=== PATIENT | male | born 1940 | race Caucasian/White ===

== ENCOUNTER 2018-04-02 18:46 | Emergency (ER) ==
[2018-04-02 18:54] VITALS: BP 127/78; TEMP 99.1; BMI 26.9
[2018-04-02] MEDS ORDERED: LIDOCAINE HCL 1% SDV SUBCUT STA (19:17)
--- NOTE | 2018-04-02 20:16 | ED.PDOC ---
General ED Provider: Dr. DEVANTE WERNER Chief Complaint: Fall Stated Complaint: I fell at home now have a skin laceration on the left hand. Denies any other pain. Time Seen by Physician: 19:30 Mode of Arrival: Walk-In Information Source: Patient, Family Primary Care Provider: JOE MARROQUIN Nursing and Triage Documentation Reviewed and Agree: Yes Does patient meet sepsis criteria?: No System Inflammatory Response Syndrome: Not Applicable Sepsis Protocol: For patient's 13 years and over: Temp is 96.8 and below OR 101 and greater Pulse >90 BPM Resp >20/minute Acutely Altered Mental Status Are patient's symptoms suggestive of a new infection, such as: -Pneumonia -Skin, Soft Tissue -Endocarditis -UTI -Bone, Joint Infection -Implantable Device -Acute Abdominal Infection -Wound Infection -Meningitis -Blood Stream Catheter Infection -Unknown Review of Systems - Review Of Systems Constitutional: Reports: No symptoms Skin: Reports: Other (laceration left hand ) All Other Systems: Reviewed and Negative Past Medical History - Past Medical History Endocrine: Reports: None Cardiovascular: Reports: None Respiratory: Reports: None Hematological: Reports: None Gastrointestinal: Reports: None Genitourinary: Reports: None Neuro/Psych: Reports: TIA Musculoskeletal: Reports: None Cancer: Reports: None Other Pertinent Past Medical History: Cerumen impaction - Surgical History General Surgical History: Reports: Orthopedic (Knee replacement ) - Family History Family History: Reports: None - Social History Smoking Status: Never smoker Hx Substance Use: No Alcohol Screening: None - Immunizations Tetanus Shot up to Date: Yes Influenza Vaccine within 12 Months: No Pneumococcal Vaccine up to Date: No Physical Exam - Physical Exam Appearance: Well-appearing Pain Distress: Mild Eyes: Conjunctiva clear Respiratory: Airway patent Musculoskeletal: Normal strength, ROM intact Skin: Warm, Dry Neurological: Alert, Oriented Psychiatric: Anxious Critical Care Note - Critical Care Note Total Time (mins): 0 Course - Course Orders, Labs, Meds: Orders Category Date Time Status Wound care [ED WOUND CARE] .ONCE EMERGENCY 04/02/18 19:17 Active Lidocaine HCl/Pf [Lidocaine HCl 1% Sdv] MEDS 04/02/18 19:17 Discontinued 5 ml SUBCUT ONCE STA Medications Discontinued Medications Generic Name Dose Route Start Last Admin Trade Name Freq PRN Reason Stop Dose Admin Lidocaine HCl 5 ml 04/02/18 19:17 04/02/18 19:46 Lidocaine Hcl 1% Sdv SUBCUT 04/02/18 19:18 5 ml ONCE STA Administration Vital Signs: Temp Pulse Resp BP Pulse Ox 04/02/18 18:48 99.1 F 81 20 127/78 94 L Departure - Departure Time of Disposition: 20:17 Disposition: HOME SELF-CARE Discharge Problem: Laceration of hand Qualifiers: Encounter type: initial encounter Foreign body presence: without foreign body Laterality: left Qualified Code(s): S61.412A - Laceration without foreign body of left hand, initial encounter Finger laceration Qualifiers: Encounter type: sequela Finger: middle finger Damage to nail status: without damage Foreign body presence: without foreign body Laterality: left Qualified Code(s): S61.213S - Laceration without foreign body of left middle finger without damage to nail, sequela Instructions: Finger Laceration (ED), Laceration (ED) Condition: Fair Pt referred to PMD for follow-up: Yes IPMP verified?: No Additional Instructions: Follow up with PCP in 7-10 days to have sutures removed Allergies/Adverse Reactions: Allergies No Known Allergies Allergy (Unverified 07/22/15 10:23) Home Medications: Ambulatory Orders Benzonatate [Tessalon Perles] 100 mg PO TID PRN #15 capsule 07/22/15 Fluticasone Propionate [Flonase Allergy Relief] 9.9 ml NS DAILY #1 spray.susp Disposition Discussed With: Patient, Family
== END 2018-04-02 20:30 | disposition home or self-care (01) ==
LOC: ED 18:46
DX: S61.412A Laceration without foreign body of left hand, initial encounter (principal); S61.213A Laceration without foreign body of left middle finger without damage to nail, initial encounter
CPT/HCPCS: 99283

== ENCOUNTER 2024-10-01 10:34 | Inpatient (IN) ==
--- NOTE | 2024-10-01 10:46 | ED.PDOC ---
General ED Provider: Dr. MARCELINO STOUT MD Chief Complaint: Weakness Stated Complaint: This 84 y/o male comes in with weakness and decubitis ulcers on his buttocks that have been bothering him for a couple of weeks. he is supposed to get a new bed, but does not have it yet. Time Seen by Provider: 10/01/24 10:38 Mode of Arrival: Walk-In Information Source: Patient Exam Limitations: No limitations Primary Care Provider: MARGARITA ABAD Nursing and Triage Documentation Reviewed and Agree: Yes Does Patient Take Opioids?: No Is Patient Opioid Naive?: No What is Opioid Naive?: *Opioid Naive implies the patient is not already taking opioids or not chronically receiving opioids on a daily basis. *PRN dosing is not "usually" associated with tolerance. *Patients are at higher risk of over-sedation and aspiration. Is Patient Opioid Tolerant?: No What is Opioid Tolerant?: *Opioid Tolerance implies less than the expected response to an opioid. *Acquired tolerance is defined by the patient taking 60mg of oral morphine daily (or equianalgesic dose of another opioid) for 1 week or more. *Often associated with chronic pain. *May take more than usual dose to achieve desired pain control. Review of Systems Review Of Systems Constitutional: Reports No symptoms Eyes: Reports No symptoms Ears, Nose, Mouth, Throat: Reports No symptoms Respiratory: Reports No symptoms Cardiac: Reports No symptoms GI: Reports No symptoms : Reports No symptoms Musculoskeletal: Reports No symptoms Skin: Reports Other (decubitus ulcers, stage 1, starting on buttocks) Neurological: Reports Weakness Endocrine: Reports No symptoms Hematologic/Lymphatic: Reports No symptoms All Other Systems: Reviewed and Negative [facility] Social History Smoking and tobacco status: Never smoker Physical Exam Physical Exam Appearance: Reports Well-appearing Ill-appearing: None Pain Distress: None Eyes: Reports LARRY, EOMI, Conjunctiva clear and Conjunctiva inflammed ENT: Reports Ears normal, Nose normal and Oropharynx normal Neck: Supple Respiratory: Reports Airway patent, Breath sounds clear, Breath sounds equal and Breath sounds diminished Cardiovascular: Reports RRR and Pulses normal GI/: Reports Soft, Nontender, No masses, Bowel sounds normal and No Organomegaly Musculoskeletal: Reports Normal strength and ROM intact Skin: Reports Warm, Dry and Other (2 stage 1 decubs starting on both sides of buttocks, but no sacral decub. No bleeding as of now, but patient says that they have before. Skin still intact mostly.) Neurological: Reports Sensation intact, Motor intact, Reflexes intact, Cranial nerves intact, Alert and Oriented Psychiatric: Reports Affect appropriate Course Course 10/01/24 10:58 10/01/24 10:58 Orders, Labs, Meds: Lab Review 10/01/24 10/01/24 10:53 10:58 WBC 6.14 RBC 4.00 L Hgb 12.9 L Hct 40.4 L MCV 101.0 H MCH 32.3 H MCHC 31.9 RDW Coeff of Jl 12.4 Plt Count 117 L Immature Gran % (Auto) 0.3 Neut % (Auto) 68.4 Lymph % (Auto) 14.2 [place] % (Auto) 6.7 Eos % (Auto) 9.9 H Baso % (Auto) 0.5 Neut # (Auto) 4.2 Lymph # (Auto) 0.9 [place] # (Auto) 0.4 Eos # (Auto) 0.6 Baso # (Auto) 0.0 Immature Gran # (Auto) 0.0 Sodium 139.2 Potassium 2.98 L Chloride 101.9 Carbon Dioxide 24.7 Anion Gap 15.58 BUN 13.9 Creatinine 1.41 H Estimated GFR (MDRD) 48.00 BUN/Creatinine Ratio 9.85 Glucose 94.3 Calcium 8.81 Magnesium 1.29 L Total Bilirubin 0.79 AST 30.3 ALT 17.5 Alkaline Phosphatase 74.9 Troponin I 0.067 Total Protein 6.33 Albumin 3.39 L Globulin 2.94 Albumin/Globulin Ratio 1.15 TSH 2.050 Free T4 1.92 SARS CoV-2 RNA Rapid TRACY Negative Orders Category Date Time Status ADMIT PATIENT INPATIENT .TO MEDSURG (MONITORED BED) ADMISSION 10/01/24 12:55 Active EKG-(ED ONLY) Stat CARDIO 10/01/24 10:46 Completed TELEMETRY MONITORING TELE CARE 10/01/24 12:55 Active Wound care [ED WOUND CARE] .ONCE EMERGENCY 10/01/24 10:47 Active CBC W/ AUTO DIFF Stat LAB 10/01/24 10:58 Completed CMP [COMPREHENSIVE METABOLIC PANEL] Stat LAB 10/01/24 10:58 Completed FREE T4 (FREE THYROXINE) Stat LAB 10/01/24 10:58 Completed MAGNESIUM Stat LAB 10/01/24 10:58 Completed PROBNP ED [NT-PROBNP(ED)] Stat LAB 10/01/24 10:58 Received SARS COV-2 RNA RAPID TRACY Stat LAB 10/01/24 10:53 Completed TROPONIN I Stat LAB 10/01/24 10:58 Completed TSH [THYROID STIMULATING HORMONE] Stat LAB 10/01/24 10:58 Completed Magnesium Sulfate Bag [Magnesium Sulfate 1 gm/100 ml Meds 10/01/24 13:00 Active D5w] 1 gm in 100 ml IV ONCE Potassium Chloride [K-Dur] Meds 10/01/24 12:27 Discontinued 40 meq PO ONCE ONE Sodium Chloride 0.9% [Sodium Chloride] 500 ml Meds 10/01/24 12:28 Active IV 100 mls/hr KUB [ABDOMEN 1 VIEW] Stat RADS 10/01/24 11:25 Completed Medications Generic Name Dose Route Start Last Admin Trade Name Freq PRN Reason Stop Dose Admin Sodium Chloride 500 mls @ 100 mls/hr 10/01/24 12:28 10/01/24 12:44 Sodium Chloride IV 10/01/24 17:27 100 mls/hr .Q5H ONE Administration Magnesium Sulfate/Dextrose 1 gm in 100 mls @ 100 mls/hr 10/01/24 13:00 10/01/24 12:44 Magnesium Sulfate 1 Gm/100 Ml D5w IV 10/01/24 13:59 100 mls/hr ONCE ONE Administration Discontinued Medications Generic Name Dose Route Start Last Admin Trade Name Freq PRN Reason Stop Dose Admin Potassium Chloride 40 meq 10/01/24 12:27 10/01/24 12:44 Potassium Chloride 20 Meq Tab PO 10/01/24 12:28 40 meq ONCE ONE Administration Vital Signs: Temp Pulse Resp BP Pulse Ox 10/01/24 10:38 98.2 F 81 18 151/77 H 96 Discharge Plan Discharge Patient Disposition: ADMITTED INPATIENT Discharge Problem: Weakness, Acute hypokalemia, Hypomagnesemia, Decubitus skin ulcer Did you review [place] [employer] DIRECTOR for ALL controlled substances?: Not Applicable ED Provider: MARCEILNO STOUT Condition: Good Physician Progress Note: We will get CBC, CMP, EKG, Mag, and will likely admit the patient for care, as he is weak, can not take care of himself well, we will likely admit this nice gentleman for care, as he would benefit greatly from this. Patient has HYPOKALEMIA and HYPOMAGNESEMIA with K+ = 2.9 and Mag = 1.29. All other serum electrolytes are WNL, and CBC shows all values adequate. COVID is negative EKG - Tracing shows NSR with rate = 68 BPM. TN interval is slightly prolonged = 204 MS and QRS duration = 86 MS. Rhythm is NSR with no acute ST segment abberations. This EKG read and interpreted by me: Dr. Marcelino Stout MD. I spoke to Cm Mcfadden who is on for hospitalist. She will accept the patient, and I have started K-Dur 40 mEq po, and am giving Mag Sulfate 1 gram in IV form, with NS at 100 cc/hr. We will admit for Weakness, Hypokalemia, Hypomagnesemia, and decubitus care.
[2024-10-01 11:05] LABS: BASOPHILS % (AUTO) 0.5 % (0.0-3.0); EOSINOPHILS # (AUTO) 0.6 K/ul (0.0-0.7); EOSINOPHILS % (AUTO) 9.9 % (0.0-7.0); HEMATOCRIT 40.4 % (42.0-52.0); HEMOGLOBIN 12.9 g/dl (14.0-18.0); IMMATURE GRANULOCYTE % (AUTO) 0.3 % (0.0-5.0); LYMPHOCYTES # (AUTO) 0.9 K/uL (0.60-3.4); LYMPHOCYTES % (AUTO) 14.2 (10.0-50.0); MEAN CORPUSCULAR HEMOGLOBIN 32.3 pg (27.0-31.0); MEAN CORPUSCULAR HGB CONC 31.9 (31.8-35.4); MONOCYTES # (AUTO) 0.4 K/uL (0.4-2.0); MONOCYTES % (AUTO) 6.7 (0-10); NEUTROPHILS # (AUTO) 4.2 K/ul (2.0-6.9); NEUTROPHILS % (AUTO) 68.4 % (42.2-75.2); PLATELET COUNT 117 10^3/uL (140-440); RDW COEFFICIENT OF VARIATION 12.4 % (11.6-14.8); WHITE BLOOD COUNT 6.14 K/ul (4.2-10.2)
[2024-10-01 11:16] LABS: ALANINE AMINOTRANSFERASE 17.5 U/L (0-50); ALBUMIN 3.39 g/dL (3.5-5.0); ALKALINE PHOSPHATASE 74.9 U/L (56-119); ASPARTATE AMINO TRANSFERASE 30.3 U/L (17-59); BILIRUBIN,TOTAL 0.79 mg/dL (0.2-1.3); BLOOD UREA NITROGEN 13.9 mg/dL (9-20); CALCIUM 8.81 mg/dL (8.4-10.2); CARBON DIOXIDE 24.7 mmol/L (22-30.0); CHLORIDE 101.9 mmol/L (98-107); CREATININE 1.41 mg/dL (0.60-1.10); GLUCOSE 94.3 mg/dL (74-106); MAGNESIUM 1.29 mg/dL (1.6-2.3); POTASSIUM 2.98 mmol/L (3.5-5.1); SODIUM 139.2 mmol/L (134.5-145); TOTAL PROTEIN 6.33 g/dL (6.3-8.2)
[2024-10-01 11:27] LABS: TROPONIN I 0.067 ng/ml (0.0000-0.120)
[2024-10-01 11:27] LABS: SARS COV-2 RNA RAPID NAAT NEGATIVE (NEGATIVE)
--- NOTE | 2024-10-01 11:44 | DI ---
EXAM: AP VIEW OF ABDOMEN 10/01/2024 HISTORY: Constipation. COMPARISON: CT abdomen pelvis 07/27/2024 FINDINGS: Regional soft tissue and osseous structures are intact. Bowel gas pattern is non-obstructive. No fr ee intraperitoneal air. Moderate fecal burden. Degenerative changes. Scoliosis. Phleboliths in the pelvis. IMPRESSION: Nonobstructive bowel gas pattern. Moderate fecal burden.
[2024-10-01] MEDS ORDERED: MAGNESIUM SULFATE 1 GM/2 ML VIAL IVP ONE (12:28)
[2024-10-01] MEDS: K-DUR PO ONE (12:44)
[2024-10-01] MEDS: MAGNESIUM SULFATE 1 GM/100 ML D5W 1 GM/100 ML BAG IV ONE (12:44)
[2024-10-01] MEDS: SODIUM CHLORIDE 500 ML IV ONE (12:44)
[2024-10-01 14:23] VITALS: BMI 23.1
[2024-10-01] MEDS ORDERED: TYLENOL PO PRN (14:25)
--- NOTE | 2024-10-01 14:42 | PCM ---
Date of Service Date Seen by Provider: 10/01/24 Time Seen by Provider: 14:15 Admit Day/Time Admission Date: 10/01/24 Reason for Admission Chief Complaint: WEAKNESS Hospital Provider Hospital Provider: RD MOLINA, [facility]ist [facility] Primary Care Physician Primary Care Physician: MARGARITA ABAD History of Present Illness History of Present Illness: 84 yo male with pmh of HTN, HLD, Diastolic dysfunction, and Afib presented to the ER via ambulance from home for weakness. States that he has not been out of his recliner for 2 weeks due to weakness. Has been using a urinal to urinate and has foul smell due to inability to shower. Currently living at home by himself. No family that lives local. Does have a friend that looks out for him. Found to have potassium of 2.9 and Mag of 1.3. Admitted to med/surg observation. Re quiring 3 person assist to transfer at this time. Case Discussed With Case Discussed With: Patient's case was discussed with the ER Physicians, Dr. Stout [facility] Medical History (Updated 10/01/24 @ 14:[address]OLINA) Implantable loop recorder present Z95.818 - Presence of other cardiac implants and grafts (ICD-10) TIA (transient ischemic attack) G45.9 - Transient cerebral ischemic attack, unspecified (ICD-10) HLD (hyperlipidemia) E78.5 - Hyperlipidemia, unspecified (ICD-10) HTN (hypertension) I10 - Essential (primary) hypertension (ICD-10) CAD (coronary artery disease) I25.10 - Atherosclerotic heart disease of [place] coronary artery without angina pectoris (ICD-10) Grade I diastolic dysfunction I51.89 - Other ill-defined heart diseases (ICD-10) Aortic root enlargement I77.89 - Other specified disorders of arteries and arterioles (ICD-10) Paroxysmal SVT (supraventricular tachycardia) I47.10 - Supraventricular tachycardia, unspecified (ICD-10) Hiatal hernia K44.9 - Diaphragmatic hernia without obstruction or gangrene (ICD-10) Paroxysmal atrial fibrillation I48.0 - Paroxysmal atrial fibrillation (ICD-10) Chronic kidney disease, stage 3b N18.32 - Chronic kidney disease, stage 3b (ICD-10) BPH (benign prostatic hyperplasia) N40.0 - Benign prostatic hyperplasia without lower urinary tract symptoms (ICD-10) Barretts esophagus K22.70 - Ram's esophagus without dysplasia (ICD-10) Social History Smoking and tobacco status: Never smoker Allergies Allergies Allergy/AdvReac Type Severity Reaction Status Date / Time No Known Allergies Allergy Verified 10/01/24 10:55 Current Medications Home Medications Acetaminophen (Acetaminophen 325 Mg Tablet) 650 mg PO Q4H PRN PRN Reason: Mild Pain fluticasone propionate 50 mcg/actuation nasal spray,suspension (Flonase Allergy Relief) 9.9 ml NS DAILY ##1 07/22/15 [Rx Confirmed 10/01/24] donepezil 5 mg tablet 5 mg PO DAILY 01/21/21 [History Confirmed 10/01/24] dorzolamide 22.3 mg-timolol 6.8 mg/mL eye drops 1 drp BOTHEYES BEDTIME 01/21/21 [History Confirmed 10/01/24] ergocalciferol (vitamin D2) 1,250 mcg (50,000 unit) capsule (Vitamin D2) 1 unit PO DIRECTED 01/21/21 [History Confirmed 10/01/24] folic acid 1 mg tablet 1 mg PO DAILY 01/21/21 [History Confirmed 10/01/24] pantoprazole 40 mg tablet,delayed release 40 mg PO DAILY 01/21/21 [History Confirmed 10/01/24] tamsulosin 0.4 mg capsule 0.4 mg PO DAILY 01/21/21 [History Confirmed 10/01/24] apixaban 2.5 mg tablet (Eliquis) 2.5 mg PO BID 10/01/24 [History Confirmed 10/01/24] atorvastatin 10 mg tablet 10 mg PO DAILY 10/01/24 [History Confirmed 10/01/24] bimatoprost 0.01 % eye drops (Lumigan) 1 drp BOTHEYES BEDTIME 10/01/24 [History Confirmed 10/01/24] brimonidine 0.2 % eye drops 1 drp BOTHEYES TID 10/01/24 [History Confirmed 10/01/24] carvedilol 3.125 mg tablet 3.125 mg PO BID 10/01/24 [History Confirmed 10/01/24] erythromycin 5 mg/gram (0.5 %) eye ointment 1 applic BOTHEYES BEDTIME 10/01/24 [History Confirmed 10/01/24] fexofenadine 180 mg tablet (Kareen Allergy) 180 mg PO DAILY 10/01/24 [History Confirmed 10/01/24] terazosin 5 mg capsule 5 mg PO BEDTIME 10/01/24 [History Confirmed 10/01/24] Opioid Naive vs. Tolerant Does Patient Take Opioids?: No Is Patient Opioid Naive?: Yes What is Opioid Naive?: *Opioid Naive implies the patient is not already taking opioids or not chronically receiving opioids on a daily basis. *PRN dosing is not "usually" associated with tolerance. *Patients are at higher risk of over-sedation and aspiration. Is Patient Opioid Tolerant?: No What is Opioid Tolerant?: *Opioid Tolerance implies less than the expected response to an opioid. *Acquired tolerance is defined by the patient taking 60mg of oral morphine daily (or equianalgesic dose of another opioid) for 1 week or more. *Often associated with chronic pain. *May take more than usual dose to achieve desired pain control. Review of Systems Constitutional: Reports Weakness Head: Reports Normocephalic Eyes: Reports No symptoms Ears: Reports No symptoms Nose: Reports No symptoms Mouth: Reports No symptoms Throat: Reports No symptoms Cardiovascular: Reports No symptoms Respiratory: Reports No symptoms Gastrointestinal: Reports No symptoms Genitourinary: Reports No Symptoms Musculoskeletal: Reports No symptoms Endocrine: Reports No symptoms Hematology: Reports No symptoms Immunology: Reports No symptoms Neurological: Reports No symptoms Psychiatric: Reports No symptoms Physical examination Most Recent Vital Signs: Most Recent Vital Signs Temperature 97.8 F 10/01/24 13:35 Temperature Source Temporal Artery Scan 10/01/24 13:35 Temperature Source Temporal Artery Scan 10/01/24 10:38 Pulse Rate 64 10/01/24 13:35 Respiratory Rate 18 10/01/24 13:35 Blood Pressure 151/77 H 10/01/24 10:38 Blood Pressure Left Arm 123/95 10/01/24 13:35 Blood Pressure Position Sitting 10/01/24 13:35 O2 Sat by Pulse Oximetry 97 10/01/24 13:35 Oxygen Delivery Method Room Air 10/01/24 14:00 Height 6 ft 4 in 10/01/24 13:35 Weight 86 kg 10/01/24 13:35 Appearance: Positive No Apparent Distress and Alert and Oriented x3 Skin: Positive Warm and Other (shearing to buttocks, blanchable; redness to backs of legs due to blood pooling) HEENT: Positive Normocephalic and PERRLA Neck: Positive Supple Chest/Lungs: Positive Symmetrical With Equal Breath Sounds, Clear to Auscultation Bilaterally and Good Air Movement all 4 Lung Lopez Heart: Positive RRR, Pulses Normal and Murmur GI/: Positive Soft, Nontender, Bowel Sounds Normal and No Distention Musculoskeletal: Positive Other (unsteady, weak) Extremities: Positive Intact Peripheral Pulses, Stable Joints Without Laxity and Good ROM in All Joints Neurological: Positive Sensation Intact, Motor intact, Alert, Oriented and Other (generalized weakness) Labs This Visit Labs This Visit: Labs This Visit 10/01/24 10/01/24 10:53 10:58 WBC 6.14 RBC 4.00 L Hgb 12.9 L Hct 40.4 L MCV 101.0 H MCH 32.3 H MCHC 31.9 RDW Coeff of Jl 12.4 Plt Count 117 L Immature Gran % (Auto) 0.3 Neut % (Auto) 68.4 Lymph % (Auto) 14.2 [place] % (Auto) 6.7 Eos % (Auto) 9.9 H Baso % (Auto) 0.5 Neut # (Auto) 4.2 Lymph # (Auto) 0.9 [place] # (Auto) 0.4 Eos # (Auto) 0.6 Baso # (Auto) 0.0 Immature Gran # (Auto) 0.0 Sodium 139.2 Potassium 2.98 L Chloride 101.9 Carbon Dioxide 24.7 Anion Gap 15.58 BUN 13.9 Creatinine 1.41 H Estimated GFR (MDRD) 48.00 BUN/Creatinine Ratio 9.85 Glucose 94.3 Calcium 8.81 Magnesium 1.29 L Total Bilirubin 0.79 AST 30.3 ALT 17.5 Alkaline Phosphatase 74.9 Troponin I 0.067 NT-Pro-B Natriuret Pep 1920 H Total Protein 6.33 Albumin 3.39 L Globulin 2.94 Albumin/Globulin Ratio 1.15 TSH 2.050 Free T4 1.92 SARS CoV-2 RNA Rapid TRACY Negative Review Statement Review Statement: I have independently reviewed and interpreted the labs/EKGs/imaging that were ordered by the ER provider. I have reviewed all outside records that are available currently in our EMR including imaging/notes/labs from previous visits. Plan Plan: 1. Hypokalemia - replacement ordered, telemetry, repeat in am 2. Hypomagnesemia - replacement ordereed, telemetry, repeat in am 3. Weakness/Debility - PT/OT consult, unsafe to discharge home at this time 4. Diastolic dysfunction - chronic, no s/sx of overload, monitor 5. HTN - chronic, continue home medications DVT Prophylaxis: Eliquis Time Spent: Greater than 80 minutes spent with patient, 50% of the time spent with this patient was devoted to counseling and coordination of care. [facility] minutes spent discussing advance care planning. Disposition: Admit to: Med/Surg Observation DNR Discussed Plan of Care with Dr. Shantel Briseno. Medications Medication Orders: Medications Ordered Category Date Time Status Acetaminophen [Tylenol] Meds 10/01/24 14:25 Ordered 650 mg PO Q4H PRN
[2024-10-01 14:51] LABS: BILIRUBIN,URINE 1+ (NEGATIVE); CLARITY,URINE Clear (CLEAR); COLOR,URINE Yellow (YELLOW); GLUCOSE, URINE (UA) Negative (NEGATIVE); KETONES,URINE 2+ (NEGATIVE); LEUKOCYTE ESTERASE ,URINE Negative (NEGATIVE); NITRITE,URINE Negative (NEGATIVE); PROTEIN,URINE 2+ (NEGATIVE); URINE, BLOOD Negative (NEGATIVE)
[2024-10-01 14:54] LABS: MUCUS,URINE 1+ (NOT PRESENT); URINE RBC, MICROSCOPIC 0-2 (0-2)
[2024-10-01] MEDS: COREG PO SCH (17:06)
[2024-10-01] MEDS: PROTONIX PO SCH (17:06)
[2024-10-01] MEDS: COSOPT RIGHTEYE SCH (20:29)
[2024-10-01] MEDS: FOLIC ACID PO SCH (20:29)
[2024-10-01] MEDS: LIPITOR PO SCH (20:29)
[2024-10-01] MEDS: ERYTHROMYCIN EACHEYE SCH (20:29)
[2024-10-01] MEDS: LUMIGAN 0.03% EACHEYE SCH (20:29)
[2024-10-01] MEDS: BRIMONIDINE TARTRATE 0.2% OPTH SOL RIGHTEYE SCH (20:29)
[2024-10-01] MEDS: ELIQUIS PO SCH (20:30)
[2024-10-01] MEDS: FLOMAX PO PRN (20:30)
[2024-10-01] MEDS: DRISDOL PO SCH (20:35)
[2024-10-01] MEDS ORDERED: HYTRIN PO SCH (21:00)
[2024-10-02 05:52] LABS: BASOPHILS % (AUTO) 0.4 % (0.0-3.0); EOSINOPHILS # (AUTO) 0.6 K/ul (0.0-0.7); EOSINOPHILS % (AUTO) 7.9 % (0.0-7.0); HEMATOCRIT 37.4 % (42.0-52.0); HEMOGLOBIN 11.9 g/dl (14.0-18.0); IMMATURE GRANULOCYTE % (AUTO) 0.3 % (0.0-5.0); LYMPHOCYTES % (AUTO) 12.9 (10.0-50.0); MEAN CORPUSCULAR HEMOGLOBIN 32.4 pg (27.0-31.0); MEAN CORPUSCULAR HGB CONC 31.8 (31.8-35.4); MEAN CORPUSCULAR VOLUME 101.9 fl (80.0-94.0); MONOCYTES # (AUTO) 0.6 K/uL (0.4-2.0); MONOCYTES % (AUTO) 7.5 (0-10); NEUTROPHILS # (AUTO) 5.3 K/ul (2.0-6.9); PLATELET COUNT 107 10^3/uL (140-440); RDW COEFFICIENT OF VARIATION 12.7 % (11.6-14.8); RED BLOOD COUNT 3.67 10^6/ul (4.70-6.10); WHITE BLOOD COUNT 7.47 K/ul (4.2-10.2)
[2024-10-02 06:32] LABS: POTASSIUM 3.3 mmol/L (3.5-5.1)
[2024-10-02 06:50] LABS: ALBUMIN 2.9 g/dL (3.5-5.0); BILIRUBIN,TOTAL 0.8 mg/dL (0.2-1.3); CALCIUM 8.5 mg/dL (8.4-10.2); CREATININE 1.6 mg/dL (0.60-1.10); MAGNESIUM 1.6 mg/dL (1.6-2.3); TOTAL PROTEIN 5.7 g/dL (6.3-8.2)
[2024-10-02] MEDS: COSOPT EACHEYE SCH (08:07)
[2024-10-02] MEDS: FLONASE NAS SCH (08:07)
[2024-10-02] MEDS: ARICEPT PO SCH (08:08)
[2024-10-02] MEDS: CLARITIN PO SCH (08:09)
--- NOTE | 2024-10-02 09:57 | PCM.PROG ---
Date/Time Seen Date Seen by Provider: 10/02/24 Time Seen by Provider: 09:00 Provider [facility] Chief Complaint Chief Complaint: WEAKNESS Subjective Subjective: Feeling some better this am. Had run of SVT into 170s this am. Asymptomatic. Has hx of paroxysmal afib. Takes coreg. Resolved without medication. Objective Appearance: Positive No Apparent Distress, Alert and Oriented x3 and Thin Chest/Lungs: Positive Symmetrical With Equal Breath Sounds, Clear to Auscultation Bilaterally and Good Air Movement all 4 Lung Lopez Heart: Positive RRR and Pulses Normal GI/: Positive Soft, Nontender, Bowel Sounds Normal and No Distention Musculoskeletal: Positive Not Examined Neurological: Positive Sensation Intact, Motor intact, Alert, Oriented and Other (generalized weakness) Vital Signs Vital Signs: Vital Signs: Last 24 Hours 10/01/24 10:38 10/01/24 13:35 10/01/24 13:35 Temperature 98.2 F 97.8 F Temperature Source Temporal Artery Scan Temporal Artery Scan Pulse Rate 81 64 Respiratory Rate 18 18 Blood Pressure 151/77 H Blood Pressure Mean Blood Pressure Left Arm 123/95 Blood Pressure Location Blood Pressure Position Sitting O2 Sat by Pulse Oximetry 96 97 Oxygen Delivery Method Room Air Room Air Height 6 ft 4 in 6 ft 4 in Weight 88.4 kg 86 kg Telemetry Type Telemetry Monitoring Telemetry Heart Rate EKG PA Interval EKG QRS Interval Telemetry Strip Reading 10/01/24 14:00 10/01/24 15:00 10/01/24 15:26 Temperature Temperature Source Pulse Rate Respiratory Rate Blood Pressure Blood Pressure Mean Blood Pressure Left Arm Blood Pressure Location Blood Pressure Position O2 Sat by Pulse Oximetry Oxygen Delivery Method Room Air Room Air Height Weight Telemetry Type Remote Telemetry Telemetry Monitoring Started Telemetry Heart Rate 59 L EKG PA Interval 0.20 EKG QRS Interval 0.08 Telemetry Strip Reading SB 10/01/24 16:00 10/01/24 17:00 10/01/24 18:00 Temperature Temperature Source Pulse Rate Respiratory Rate Blood Pressure Blood Pressure Mean Blood Pressure Left Arm Blood Pressure Location Blood Pressure Position O2 Sat by Pulse Oximetry Oxygen Delivery Method Room Air Room Air Room Air Height Weight Telemetry Type Telemetry Monitoring Telemetry Heart Rate EKG PA Interval EKG QRS Interval Telemetry Strip Reading 10/01/24 18:00 10/01/24 19:00 10/01/24 19:00 Temperature 98.3 F Temperature Source Temporal Artery Scan Pulse Rate 68 Respiratory Rate 14 Blood Pressure 124/78 Blood Pressure Mean 93 Blood Pressure Left Arm Blood Pressure Location Left Arm Blood Pressure Position O2 Sat by Pulse Oximetry 95 Oxygen Delivery Method Room Air Room Air Height Weight Telemetry Type Remote Telemetry Telemetry Monitoring Continues Telemetry Heart Rate 73 EKG PA Interval 0.20 EKG QRS Interval 0.08 Telemetry Strip Reading SINUS RHYTHM 10/01/24 20:00 10/01/24 20:00 10/01/24 21:00 Temperature Temperature Source Pulse Rate Respiratory Rate Blood Pressure Blood Pressure Mean Blood Pressure Left Arm Blood Pressure Location Blood Pressure Position O2 Sat by Pulse Oximetry Oxygen Delivery Method Room Air Room Air Room Air Height Weight Telemetry Type Telemetry Monitoring Telemetry Heart Rate EKG PA Interval EKG QRS Interval Telemetry Strip Reading 10/01/24 22:00 10/01/24 22:00 10/01/24 23:00 Temperature 98.8 F Temperature Source Temporal Artery Scan Pulse Rate 70 Respiratory Rate 17 Blood Pressure 131/86 Blood Pressure Mean 101 Blood Pressure Left Arm Blood Pressure Location Right Arm Blood Pressure Position Sitting O2 Sat by Pulse Oximetry 95 Oxygen Delivery Method Room Air Room Air Room Air Height Weight Telemetry Type Telemetry Monitoring Telemetry Heart Rate EKG PA Interval EKG QRS Interval Telemetry Strip Reading 10/01/24 23:57 10/02/24 01:00 10/02/24 01:00 Temperature Temperature Source Pulse Rate Respiratory Rate Blood Pressure Blood Pressure Mean Blood Pressure Left Arm Blood Pressure Location Blood Pressure Position O2 Sat by Pulse Oximetry Oxygen Delivery Method Room Air Room Air Height Weight Telemetry Type Remote Telemetry Telemetry Monitoring Continues Telemetry Heart Rate 63 EKG PA Interval 0.15 EKG QRS Interval 0.06 Telemetry Strip Reading SINUS RHYTHM 10/02/24 02:00 10/02/24 02:59 10/02/24 03:55 Temperature Temperature Source Pulse Rate Respiratory Rate Blood Pressure Blood Pressure Mean Blood Pressure Left Arm Blood Pressure Location Blood Pressure Position O2 Sat by Pulse Oximetry Oxygen Delivery Method Room Air Room Air Room Air Height Weight Telemetry Type Telemetry Monitoring Telemetry Heart Rate EKG PA Interval EKG QRS Interval Telemetry Strip Reading 10/02/24 05:00 10/02/24 05:27 10/02/24 05:43 Temperature 98.0 F Temperature Source Temporal Artery Scan Pulse Rate 63 Respiratory Rate 18 Blood Pressure 154/85 H Blood Pressure Mean 108 Blood Pressure Left Arm Blood Pressure Location Left Arm Blood Pressure Position Supine O2 Sat by Pulse Oximetry 95 Oxygen Delivery Method Room Air Room Air Room Air Height Weight Telemetry Type Telemetry Monitoring Telemetry Heart Rate EKG PA Interval EKG QRS Interval Telemetry Strip Reading 10/02/24 07:00 10/02/24 07:00 10/02/24 08:00 Temperature Temperature Source Pulse Rate Respiratory Rate Blood Pressure Blood Pressure Mean Blood Pressure Left Arm Blood Pressure Location Blood Pressure Position O2 Sat by Pulse Oximetry Oxygen Delivery Method Room Air Room Air Height Weight Telemetry Type Remote Telemetry Telemetry Monitoring Continues Telemetry Heart Rate 65 EKG PA Interval 0.10 L EKG QRS Interval 0.05 L Telemetry Strip Reading SR 10/02/24 09:00 Temperature Temperature Source Pulse Rate Respiratory Rate Blood Pressure Blood Pressure Mean Blood Pressure Left Arm Blood Pressure Location Blood Pressure Position O2 Sat by Pulse Oximetry Oxygen Delivery Method Room Air Height Weight Telemetry Type Telemetry Monitoring Telemetry Heart Rate EKG PA Interval EKG QRS Interval Telemetry Strip Reading Lab Results Lab Results: Lab Results: Last 24 Hours 10/02/24 10/01/24 10/01/24 05:36 14:00 10:58 WBC 7.47 6.14 RBC 3.67 L 4.00 L Hgb 11.9 L 12.9 L Hct 37.4 L 40.4 L MCV 101.9 H 101.0 H MCH 32.4 H 32.3 H MCHC 31.8 31.9 RDW Coeff of Jl 12.7 12.4 Plt Count 107 L 117 L Immature Gran % (Auto) 0.3 0.3 Neut % (Auto) 71.0 68.4 Lymph % (Auto) 12.9 14.2 [place] % (Auto) 7.5 6.7 Eos % (Auto) 7.9 H 9.9 H Baso % (Auto) 0.4 0.5 Neut # (Auto) 5.3 4.2 Lymph # (Auto) 1.0 0.9 [place] # (Auto) 0.6 0.4 Eos # (Auto) 0.6 0.6 Baso # (Auto) 0.0 0.0 Immature Gran # (Auto) 0.0 0.0 Sodium 138.0 139.2 Potassium 3.30 L 2.98 L Chloride 104.0 101.9 Carbon Dioxide 26.0 24.7 Anion Gap 11.30 15.58 BUN 15.0 13.9 Creatinine 1.60 H 1.41 H Estimated GFR (MDRD) 41.00 48.00 BUN/Creatinine Ratio 9.37 9.85 Glucose 92.0 94.3 Calcium 8.50 8.81 Magnesium 1.60 1.29 L Total Bilirubin 0.80 0.79 AST 26.0 30.3 ALT 14.0 17.5 Alkaline Phosphatase 80.0 74.9 Total Creatine Kinase 53.4 L Troponin I 0.067 NT-Pro-B Natriuret Pep 1920 H Total Protein 5.70 L 6.33 Albumin 2.90 L 3.39 L Globulin 2.80 2.94 Albumin/Globulin Ratio 1.03 1.15 TSH 2.050 Free T4 1.92 Urine Color Yellow Urine Clarity Clear Urine pH 6.0 Ur Specific [place] 1.025 Urine Protein 2+ H Urine Glucose (UA) Negative Urine Ketones 2+ H Urine Blood Negative Urine Nitrite Negative Urine Bilirubin 1+ H Urine Urobilinogen 1.0 H Ur Leukocyte Esterase Negative Urine Microscopic RBC 0-2 Ur Squamous Epith Cells 2-5 Urine Mucus 1+ SARS CoV-2 RNA Rapid TRACY 10/01/24 10:53 WBC RBC Hgb Hct MCV MCH MCHC RDW Coeff of Jl Plt Count Immature Gran % (Auto) Neut % (Auto) Lymph % (Auto) [place] % (Auto) Eos % (Auto) Baso % (Auto) Neut # (Auto) Lymph # (Auto) [place] # (Auto) Eos # (Auto) Baso # (Auto) Immature Gran # (Auto) Sodium Potassium Chloride Carbon Dioxide Anion Gap BUN Creatinine Estimated GFR (MDRD) BUN/Creatinine Ratio Glucose Calcium Magnesium Total Bilirubin AST ALT Alkaline Phosphatase Total Creatine Kinase Troponin I NT-Pro-B Natriuret Pep Total Protein Albumin Globulin Albumin/Globulin Ratio TSH Free T4 Urine Color Urine Clarity Urine pH Ur Specific [place] Urine Protein Urine Glucose (UA) Urine Ketones Urine Blood Urine Nitrite Urine Bilirubin Urine Urobilinogen Ur Leukocyte Esterase Urine Microscopic RBC Ur Squamous Epith Cells Urine Mucus SARS CoV-2 RNA Rapid TRACY Negative Additional Comments Additional Comments: I have independently reviewed and interpreted the labs/EKGs/imaging ordered during this hospital stay. I have reviewed outside records that are available in our EMR that pertain to medical stay including imaging/notes/labs from previous visits. Active Medications Active Medications: Medications Generic Name Dose Route Start Last Admin Trade Name Amanda PRN Reason Stop Dose Admin Acetaminophen 650 mg 10/01/24 14:25 Acetaminophen 325 Mg Tablet PO Q4H PRN Mild Pain Apixaban 2.5 mg 10/01/24 21:00 10/02/24 08:09 Apixaban 5 Mg Tab PO 2.5 mg BID GUERRERO Administration Atorvastatin Calcium 10 mg 10/01/24 21:00 10/01/24 20:29 Atorvastatin Calcium 10 Mg Tablet PO 10 mg BEDTIME GUERRERO Administration Bimatoprost 1 drop 10/01/24 21:00 10/01/24 20:29 Bimatoprost 0.03% 2.5 Ml Opth Steff EACHEYE 1 drop BEDTIME GUERRERO Administration Brimonidine Tartrate 1 drop 10/01/24 21:00 10/02/24 08:07 Brimonidine Tartrate 0.2% 5 Ml Btl RIGHTEYE 1 drop TID GUERRERO Administration Carvedilol 3.125 mg 10/01/24 17:00 10/02/24 08:08 Carvedilol 3.125 Mg Tablet PO 3.125 mg [id number] GUERRERO Administration Donepezil HCl 5 mg 10/02/24 09:00 10/02/24 08:08 Donepezil Hcl 10 Mg Tablet PO 5 mg DAILY GUERRERO Administration Dorzolamide/Timolol 1 drop 10/02/24 09:00 10/02/24 08:07 Dorzolamide Hcl/Timolol Maleat Opth 10 Ml Steff EACHEYE 1 drop BID GUERRERO Administration Ergocalciferol 50,000 unit 10/01/24 21:00 10/01/24 20:35 Ergocalciferol (Vitamin D2) 50,000 Unit Capsule PO 50,000 unit TuFr@0900 GUERRERO Administration Erythromycin 1 applic 10/01/24 21:00 10/01/24 20:29 Erythromycin 3.5 Gm Opth Oint EACHEYE 10/04/24 20:59 1 applic BEDTIME GUERRERO Administration Fluticasone Propionate 2 spray 10/02/24 09:00 10/02/24 08:07 Fluticasone Propionate 16 Gm Nasal Bryce JUAN 2 spray DAILY GUERRERO Administration Folic Acid 1 mg 10/01/24 21:00 10/01/24 20:29 Folic Acid 1 Mg Tablet PO 1 mg BEDTIME GUERRERO Administration Loratadine 10 mg 10/02/24 09:00 10/02/24 08:09 Loratadine 10 Mg Tablet PO 10 mg DAILY GUERRERO Administration Pantoprazole Sodium 40 mg 10/01/24 17:00 10/01/24 17:06 Pantoprazole Sodium 40 Mg Tablet.Dr PO 40 mg QPM GUERRERO Administration Potassium Chloride 40 meq 10/02/24 09:53 Potassium Chloride 20 Meq Tab PO 10/02/24 09:54 ONCE ONE Tamsulosin HCl 0.4 mg 10/01/24 16:35 10/01/24 20:30 Tamsulosin Hcl 0.4 Mg Cap.Er.24h PO 0.4 mg DAILY PRN Administration URINARY RETENTION Plan Plan: 1. Hypokalemia - Improving, replacement ordered, telemetry, repeat in am 2. Hypomagnesemia - Resolved, telemetry, continue to monitor daily 3. Weakness/Debility - PT/OT to eval and treat, unsafe to discharge home at this time 4. Diastolic dysfunction - chronic, no s/sx of overload, monitor 5. HTN - chronic, continue home medications 6. Paroxysmal Afib - continue home medications, had run into 170s this am but resolved on its own, monitor DVT Prophylaxis: Eli[place]brooks Dispo: Patient lives at home alone and was stuck in recliner x 2 weeks due to weakness. Unsafe to discharge home at this time. PT/OT to eval and determine d/c plans following. Review Statement Review Statement: I have personally discussed and reviewed the patient's visit/currently labs/imaging/decision making with Dr. Briseno, my supervising attending. Greater that 50 minutes spent with patient, 50% of the time spent with this patient was devoted to counseling and coordination of care.
[2024-10-02] MEDS: K-DUR PO ONE (10:36)
[2024-10-02] MEDS: DULCOLAX RC ONE (17:52)
[2024-10-02] MEDS: MELATONIN PO PRN (23:05)
[2024-10-03 05:35] LABS: BASOPHILS % (AUTO) 0.6 % (0.0-3.0); EOSINOPHILS # (AUTO) 0.5 K/ul (0.0-0.7); EOSINOPHILS % (AUTO) 7.3 % (0.0-7.0); HEMATOCRIT 34.5 % (42.0-52.0); HEMOGLOBIN 11.1 g/dl (14.0-18.0); LYMPHOCYTES # (AUTO) 0.9 K/uL (0.60-3.4); MEAN CORPUSCULAR HEMOGLOBIN 33.2 pg (27.0-31.0); MEAN CORPUSCULAR HGB CONC 32.2 (31.8-35.4); MEAN CORPUSCULAR VOLUME 103.3 fl (80.0-94.0); MONOCYTES # (AUTO) 0.6 K/uL (0.4-2.0); NEUTROPHILS % (AUTO) 71.1 % (42.2-75.2); PLATELET COUNT 106 10^3/uL (140-440); RDW COEFFICIENT OF VARIATION 12.6 % (11.6-14.8); RED BLOOD COUNT 3.34 10^6/ul (4.70-6.10); WHITE BLOOD COUNT 6.98 K/ul (4.2-10.2)
[2024-10-03 05:47] LABS: ALANINE AMINOTRANSFERASE 12.8 U/L (0-50); ALBUMIN 2.79 g/dL (3.5-5.0); ALKALINE PHOSPHATASE 68.4 U/L (56-119); ASPARTATE AMINO TRANSFERASE 25.1 U/L (17-59); BILIRUBIN,TOTAL 0.7 mg/dL (0.2-1.3); BLOOD UREA NITROGEN 17.5 mg/dL (9-20); CALCIUM 8.63 mg/dL (8.4-10.2); CARBON DIOXIDE 25.4 mmol/L (22-30.0); CHLORIDE 105.8 mmol/L (98-107); CREATININE 1.62 mg/dL (0.60-1.10); GLUCOSE 88.9 mg/dL (74-106); MAGNESIUM 1.43 mg/dL (1.6-2.3); POTASSIUM 3.39 mmol/L (3.5-5.1); SODIUM 138.1 mmol/L (134.5-145); TOTAL PROTEIN 5.53 g/dL (6.3-8.2)
[2024-10-03] MEDS: MIRALAX PO ONE (09:37)
[2024-10-03] MEDS: MAGNESIUM SULF 2 G/50 ML BAG 2 GM/50 ML PIGGYBACK IV ONE (09:37)
[2024-10-03] MEDS: K-DUR PO ONE (09:38)
--- NOTE | 2024-10-03 10:00 | PCM.PROG ---
Date/Time Seen Date Seen by Provider: 10/03/24 Time Seen by Provider: 09:00 Provider Provider: RD MOLINA, [facility] Chief Complaint Chief Complaint: WEAKNESS Subjective Subjective: Feeling better. Slept well with melatonin last night. Appetite has increased. Renal function worsened today. Potassium and mag low. Per RN patient dribbles and doesn't urinate large amounts. Objective Appearance: Positive No Apparent Distress and Alert and Oriented x3 Chest/Lungs: Positive Symmetrical With Equal Breath Sounds, Clear to Auscultation Bilaterally and Good Air Movement all 4 Lung Lopez Heart: Positive RRR and Pulses Normal GI/: Positive Soft, Nontender, Bowel Sounds Normal and No Distention Musculoskeletal: Positive Not Examined Neurological: Positive Sensation Intact, Motor intact, Alert and Oriented Vital Signs Vital Signs: Vital Signs: Last 24 Hours 10/02/24 10:00 10/02/24 10:00 10/02/24 11:00 Temperature 98.0 F Temperature Source Temporal Artery Scan Pulse Rate 62 Respiratory Rate 14 Blood Pressure 127/80 Blood Pressure Mean 95 Blood Pressure Location Left Arm Blood Pressure Position O2 Sat by Pulse Oximetry 95 Oxygen Delivery Method Room Air Room Air Room Air Telemetry Type Telemetry Monitoring Irregular Telemetry Rate (Approximate) Telemetry Heart Rate EKG NE Interval EKG QRS Interval Telemetry Strip Reading 10/02/24 11:52 10/02/24 13:00 10/02/24 13:00 Temperature Temperature Source Pulse Rate Respiratory Rate Blood Pressure Blood Pressure Mean Blood Pressure Location Blood Pressure Position O2 Sat by Pulse Oximetry Oxygen Delivery Method Room Air Room Air Telemetry Type Remote Telemetry Telemetry Monitoring Continues Irregular Telemetry Rate (Approximate) 60-70 BPM Telemetry Heart Rate 63 EKG NE Interval 0.09 L EKG QRS Interval 0.06 Telemetry Strip Reading sinus 10/02/24 14:00 10/02/24 14:00 10/02/24 15:00 Temperature 98.5 F Temperature Source Temporal Artery Scan Pulse Rate 69 Respiratory Rate 14 Blood Pressure 115/73 Blood Pressure Mean 87 Blood Pressure Location Left Arm Blood Pressure Position Sitting O2 Sat by Pulse Oximetry 97 Oxygen Delivery Method Room Air Room Air Room Air Telemetry Type Telemetry Monitoring Irregular Telemetry Rate (Approximate) Telemetry Heart Rate EKG NE Interval EKG QRS Interval Telemetry Strip Reading 10/02/24 15:38 10/02/24 16:55 10/02/24 19:00 Temperature Temperature Source Pulse Rate Respiratory Rate Blood Pressure Blood Pressure Mean Blood Pressure Location Blood Pressure Position O2 Sat by Pulse Oximetry Oxygen Delivery Method Room Air Room Air Telemetry Type Remote Telemetry Telemetry Monitoring Continues Irregular Telemetry Rate (Approximate) Telemetry Heart Rate 65 EKG NE Interval 0.17 EKG QRS Interval 0.07 Telemetry Strip Reading SR 10/02/24 20:00 10/02/24 20:50 10/03/24 01:00 Temperature 98.2 F Temperature Source Temporal Artery Scan Pulse Rate 64 Respiratory Rate 15 Blood Pressure 142/81 H Blood Pressure Mean 101 Blood Pressure Location Right Arm Blood Pressure Position Supine O2 Sat by Pulse Oximetry 96 Oxygen Delivery Method Room Air Room Air Telemetry Type Remote Telemetry Telemetry Monitoring Continues Irregular Telemetry Rate (Approximate) Telemetry Heart Rate 61 EKG NE Interval 0.22 H EKG QRS Interval 0.06 Telemetry Strip Reading SR with 1st AVB 10/03/24 05:20 10/03/24 07:00 Temperature 98.3 F Temperature Source Temporal Artery Scan Pulse Rate 61 Respiratory Rate 16 Blood Pressure 155/87 H Blood Pressure Mean 109 Blood Pressure Location Right Arm Blood Pressure Position Supine O2 Sat by Pulse Oximetry 96 Oxygen Delivery Method Room Air Telemetry Type Remote Telemetry Telemetry Monitoring Continues Irregular Telemetry Rate (Approximate) Telemetry Heart Rate 64 EKG NE Interval EKG QRS Interval 0.05 L Telemetry Strip Reading A fib Lab Results Lab Results: Lab Results: Last 24 Hours 10/03/24 04:56 WBC 6.98 RBC 3.34 L Hgb 11.1 L Hct 34.5 L MCV 103.3 H MCH 33.2 H MCHC 32.2 RDW Coeff of Jl 12.6 Plt Count 106 L Immature Gran % (Auto) 0.0 Neut % (Auto) 71.1 Lymph % (Auto) 13.0 [place] % (Auto) 8.0 Eos % (Auto) 7.3 H Baso % (Auto) 0.6 Neut # (Auto) 5.0 Lymph # (Auto) 0.9 [place] # (Auto) 0.6 Eos # (Auto) 0.5 Baso # (Auto) 0.0 Immature Gran # (Auto) 0.0 Sodium 138.1 Potassium 3.39 L Chloride 105.8 Carbon Dioxide 25.4 Anion Gap 10.29 BUN 17.5 Creatinine 1.62 H Estimated GFR (MDRD) 41.00 BUN/Creatinine Ratio 10.80 Glucose 88.9 Calcium 8.63 Magnesium 1.43 L Total Bilirubin 0.70 AST 25.1 ALT 12.8 Alkaline Phosphatase 68.4 Total Protein 5.53 L Albumin 2.79 L Globulin 2.74 Albumin/Globulin Ratio 1.01 Additional Comments Additional Comments: I have independently reviewed and interpreted the labs/EKGs/imaging ordered during this hospital stay. I have reviewed outside records that are available in our EMR that pertain to medical stay including imaging/notes/labs from previous visits. Active Medications Active Medications: Medications Generic Name Dose Route Start Last Admin Trade Name Freq PRN Reason Stop Dose Admin Acetaminophen 650 mg 10/01/24 14:25 Acetaminophen 325 Mg Tablet PO Q4H PRN Mild Pain Apixaban 2.5 mg 10/01/24 21:00 10/03/24 08:05 Apixaban 5 Mg Tab PO 2.5 mg BID GUERRERO Administration Atorvastatin Calcium 10 mg 10/01/24 21:00 10/02/24 20:35 Atorvastatin Calcium 10 Mg Tablet PO 10 mg BEDTIME GUERRERO Administration Bimatoprost 1 drop 10/01/24 21:00 10/02/24 20:36 Bimatoprost 0.03% 2.5 Ml Opth Steff EACHEYE 1 drop BEDTIME GUERRERO Administration Brimonidine Tartrate 1 drop 10/03/24 15:00 Brimonidine Tartrate 0.2% 5 Ml Btl RIGHTEYE 0700,1500,2300 GUERRERO Carvedilol 3.125 mg 10/01/24 17:00 10/03/24 08:03 Carvedilol 3.125 Mg Tablet PO 3.125 mg [id number] GUERRERO Administration Donepezil HCl 5 mg 10/04/24 21:00 Donepezil Hcl 10 Mg Tablet PO 2100 GUERRERO Dorzolamide/Timolol 1 drop 10/02/24 09:00 10/03/24 08:11 Dorzolamide Hcl/Timolol Maleat Opth 10 Ml Steff EACHEYE 1 drop BID GUERRERO Administration Ergocalciferol 50,000 unit 10/01/24 21:00 10/01/24 20:35 Ergocalciferol (Vitamin D2) 50,000 Unit Capsule PO 50,000 unit TuFr@0900 GUERRERO Administration Erythromycin 1 applic 10/01/24 21:00 10/02/24 20:35 Erythromycin 3.5 Gm Opth Oint EACHEYE 10/04/24 20:59 1 applic BEDTIME GUERRERO Administration Fluticasone Propionate 2 spray 10/02/24 09:00 10/03/24 08:10 Fluticasone Propionate 16 Gm Nasal Guy JUAN 2 spray DAILY GUERRERO Administration Folic Acid 1 mg 10/01/24 21:00 10/02/24 20:35 Folic Acid 1 Mg Tablet PO 1 mg BEDTIME GUERRERO Administration MAGNESIUM SULFATE IN WATER 2 gm in 50 mls @ 25 mls/hr 10/03/24 08:16 10/03/24 09:37 Magnesium Sulf 2 G/50 Ml Bag IV 10/03/24 10:15 25 mls/hr ONCE ONE Administration Melatonin 6 mg 10/02/24 10:23 10/02/24 23:05 Melatonin 3 Mg Tablet PO 6 mg BEDTIME PRN Administration Insomnia Non-Formulary Medication 180 mg 10/03/24 09:30 10/03/24 09:47 Fexofenadine [Kareen Allergy] PO Not Given DAILY GUERRERO Pantoprazole Sodium 40 mg 10/01/24 17:00 10/02/24 17:12 Pantoprazole Sodium 40 Mg Tablet. PO 40 mg QPM GUERRERO Administration Sodium Chloride 1 syr 10/02/24 13:00 10/03/24 05:06 0.9% Sodium Chloride 10 Ml Disp.Syrin IVF 1 syr Q8HR GUERRERO Administration Tamsulosin HCl 0.4 mg 10/04/24 09:00 Tamsulosin Hcl 0.4 Mg Cap.Er.24h PO DAILY GUERRERO Plan Plan: 1. Hypokalemia - Improving, replacement ordered, telemetry, repeat in am 2. Hypomagnesemia - Dropped to 1.4 today, replacement ordered, telemetry, continue to monitor daily 3. Weakness/Debility - PT/OT to eval and treat, unsafe to discharge home at this time 4. Diastolic dysfunction - chronic, no s/sx of overload, monitor 5. HTN - chronic, continue home medications 6. Paroxysmal Afib - continue home medications, had run into 170s this am but resolved on its own, monitor 7. CKD - worsened today, minimal urine output and no BM, will bladder scan post void and determine if mosley is needed. Miralax ordered as well. DVT Prophylaxis: Eliquis Dispo: Patient lives at home alone and was stuck in recliner x 2 weeks due to weakness. Unsafe to discharge home at this time. PT/OT to eval and determine d/c plans following. Review Statement Review Statement: I have personally discussed and reviewed the patient's visit/currently labs/imaging/decision making with Dr. Briseno, my supervising attending. Greater that 50 minutes spent with patient, 50% of the time spent with this patient was devoted to counseling and coordination of care.
[2024-10-03] MEDS: CALMOSEPTINE OINTMENT TP SCH (14:13)
[2024-10-03] MEDS: NYSTATIN CREAM TP SCH (15:03)
[2024-10-03] MEDS: BRIMONIDINE TARTRATE 0.2% OPTH SOL RIGHTEYE SCH (15:03)
[2024-10-04 05:14] VITALS: RESP 16
[2024-10-04 05:42] LABS: BASOPHILS % (AUTO) 0.3 % (0.0-3.0); EOSINOPHILS # (AUTO) 0.7 K/ul (0.0-0.7); EOSINOPHILS % (AUTO) 10.8 % (0.0-7.0); HEMATOCRIT 33.7 % (42.0-52.0); HEMOGLOBIN 10.6 g/dl (14.0-18.0); IMMATURE GRANULOCYTE % (AUTO) 0.3 % (0.0-5.0); LYMPHOCYTES % (AUTO) 14.8 (10.0-50.0); MEAN CORPUSCULAR HEMOGLOBIN 32.2 pg (27.0-31.0); MEAN CORPUSCULAR HGB CONC 31.5 (31.8-35.4); MEAN CORPUSCULAR VOLUME 102.4 fl (80.0-94.0); MONOCYTES # (AUTO) 0.6 K/uL (0.4-2.0); MONOCYTES % (AUTO) 8.6 (0-10); NEUTROPHILS # (AUTO) 4.4 K/ul (2.0-6.9); NEUTROPHILS % (AUTO) 65.2 % (42.2-75.2); PLATELET COUNT 99 10^3/uL (140-440); RDW COEFFICIENT OF VARIATION 12.9 % (11.6-14.8); RED BLOOD COUNT 3.29 10^6/ul (4.70-6.10); WHITE BLOOD COUNT 6.77 K/ul (4.2-10.2)
[2024-10-04 05:55] LABS: ALANINE AMINOTRANSFERASE 12.3 U/L (0-50); ALBUMIN 2.59 g/dL (3.5-5.0); ALKALINE PHOSPHATASE 66.6 U/L (56-119); ASPARTATE AMINO TRANSFERASE 23.2 U/L (17-59); BILIRUBIN,TOTAL 0.54 mg/dL (0.2-1.3); BLOOD UREA NITROGEN 18.1 mg/dL (9-20); CALCIUM 8.62 mg/dL (8.4-10.2); CARBON DIOXIDE 27.6 mmol/L (22-30.0); CHLORIDE 104.2 mmol/L (98-107); CREATININE 1.5 mg/dL (0.60-1.10); GLUCOSE 90.1 mg/dL (74-106); MAGNESIUM 1.64 mg/dL (1.6-2.3); POTASSIUM 3.48 mmol/L (3.5-5.1); SODIUM 136.7 mmol/L (134.5-145); TOTAL PROTEIN 5.34 g/dL (6.3-8.2)
[2024-10-04] MEDS: FLOMAX PO SCH (08:07)
[2024-10-04] MEDS ORDERED: DRISDOL PO SCH (09:00)
--- NOTE | 2024-10-04 11:57 | RS.PTINEVL ---
Subjective Patient information Date of Evaluation: 10/04/24 Date of Arrival on Unit: 10/01/24 Admitted From:: Home Diagnosis: weakness, HTN, unable to ambulate Usual Living Arrangement: Alone Living Arrangement Comments: Lives home alone has [employer] worker that comes by 6x per week and has a friend that comes the other day. Home Environment: Apartment and Level/No stairs Medical History: Hypertension and CVA/TIA Medical History Comments:: AFIB, diastolic dysfunction, CAD, CKD, hiatal hernia, BPH, LBP LATEX ALLERGY?: No Medications: see chart Subjective Information/ Patient Comments:: pt states that he had been in his recliner for 2 weeks and was unable to get up and walk. States he had a cold and got weak. Level of function Abilities prior to this admission: prior to 2 weeks ago pt amb short distances w AD and had assist with shower from [employer] worker. pt has w/c Current Level of Function: Partially Dependent Current Equipment Used at Home: Rolling walker, Wheelchair, lift chair Interventions Objective Patient Orientation: Person, Place, Time and Situation Current Interventions: IV's and Telemetry Observation: pt with wounds due to shearing to bottom. Range of Motion ROM Right Upper Extremity AROM: Slight limitation (decreased shld flex) Left Upper Extremity AROM: Slight limitation (decreased shld flex) Right Lower Extremity AROM: Moderate limitation (decreased hip/knee ext ) Left Lower Extremity AROM: Moderate limitation (decreased hip/knee ext ) Muscle Strength Muscle Strength Right Upper Extremity: Mild Weakness (grossly 4-/5) Left Upper Extremity: Mild Weakness (grossly 4-/5) Right Lower Extremity: Moderate Weakness (hip flex 3+/5, knee flex 4-/5, ext 3- /5, ankle DF/PF 4-/5) Left Lower Extremity: Moderate Weakness (hip flex 3+/5, knee flex 4-/5, ext 3- /5, ankle DF/PF 4-/5) Sensation Sensation Right Upper Extremity: Intact/Normal Left Upper Extremity: Intact/Normal Right Lower Extremity: Intact/Normal Left Lower Extremity: Intact/Normal Palpation Palpation Findings: None/Normal Balance Sitting Balance and Reactions Static Sitting Balance: Fair Dynamic Sitting Balance: Poor Standing Balance and Reactions Static Standing Balance: Poor Dynamic Standing Balance: Poor Standing Equilibrium Reactions: Delayed Left and Delayed Right Standing Protective Reactions: Delayed Left and Delayed Right Functional Mobility Bed Mobility Rolling R/L: Mod Assist and 1 person assist Scooting: Mod Assist and 1 person assist Supine to Sit: Mod Assist and 1 person assist Transfers Sit to Stand: Mod Assist and 2 person assist Stand to Sit: Min Assist and 2 person assist Comments:: sit to stand from elevated bed min x2, sit to stand from recliner mod x 2. Safety Awareness Safety Awareness: Fair FRANDY INDEX SCORE: n/a Ambulation Ambulation Assistive Device Used: Rolling Walker Orthotic/Prosthetic Device: No Distance: 12ft + 10ft Assistance needed with Ambulation: CGA, Min Assist and 2 person assist Quality of Ambulation: pt amb with knees flex, decreased step length, flexed posture, forward head. pt requires cues for posture. Gait Deviations: Forward posture and Short stride Factors Affecting Ambulation: Decreased Balance, Weakness, Decreased Coordination, Decreased ROM, Decreased Safety, Cognitive Status and Limited Endurance Treatment time Units charged Gait trainin Time with patient Length of Evaluation: 19 Total treatment time: 31 Patient Education Education Patient Education: Activity Modification and Education of Plan of Care Teaching Recipient: Patient Teaching Methods: Discussion Assessment Assessment Problem List:: Decreased level of function, Requires training/education, Decreased safety/Risk of falls and Weakness Rehab Potential: Fair Further Therapy Indicated?: Yes Candidate for Swing Bed for Therapy Services?: pt may be a candidate for swing bed for therapy Evaluation Complexity: HISTORY: Medium, EXAM OF BODY SYSTEMS: Medium, CLINICAL PRESENTATION: Medium and CLINICAL DECISION MAKING: Medium Patient's Goal(s): Be as independent as possible to return home. Short Term Goals GOAL #1: pt demonstrate rolling and scooting to edge of bed independently. Goal to be met by: 10/08/24 GOAL #2: Transfer sup to/from sit min x 1 Goal to be met by: 10/08/24 GOAL #3: Transfer sit to/from stand min to mod x 1 Goal to be met by: 10/08/24 GOAL #4: pt amb with rwx 25ft with min to CGA x 1 without seated rest period. Goal to be met by: 10/08/24 GOAL #5: Improve BLE strength 4- to 4/5 Goal to be met by: 10/08/24 Usp Goals GOAL #1: Transfer sup to/from sit to/from stand SBA to CGA x 1 Goal to be met by: 10/11/24 GOAL #2: pt amb 75ft with rwx with CGA x 1 Goal to be met by: 10/11/24 GOAL #3: Improve dyn stand balance fair- Goal to be met by: 10/11/24 Plan Plan of Care: Therapeutic EX, Neuromuscular Re-Educ and Therapeutic Activity Other:: gait training Frequency of Treatment: 1-2 X day, as tolerated Duration of Treatment: 1 Week Anticipated Discharge Destination: undetermined Treatment Diagnosis (ICD 10 Codes): impaired balance R26.81 gait difficulty R26.2 weakness M62.81 Has the Physician been added for Co-signature?: Yes
--- NOTE | 2024-10-04 11:59 | RS.OTINEVL ---
Subjective Patient information Date of Evaluation: 10/04/24 Date of Arrival on Unit: 10/01/24 Admitted From:: Home Diagnosis: Hypokalemia, weakness, Impaired balance PRECAUTIONS: fall risk Usual Living Arrangement: Alone Living Arrangement Comments: Lives home alone has [employer] worker that comes by 6x per week and has a friend that comes the other day. Home Environment: Apartment and Level/No stairs Medical History: Hypertension and CVA/TIA Medical History Comments:: AFIB, diastolic dysfunction, CAD, CKD, hiatal hernia, BPH, LBP LATEX ALLERGY?: No Surgical History: Knee Replacement (Left ) Medications: see chart Subjective Information/ Patient Comments:: "I need a drink when they bring that water back." "That's what I need." Level of function Abilities prior to this admission: Pt has caregivers for assistance with showering and dressing and cleaning of his apartment. Pt used the RW for short distances and uses WC at home for transfers. Current Level of Function: Partially Dependent Comments: Pt can walk with CGA to min A x 2. Current Equipment Used at Home: Rolling walker, Wheelchair, lift chair Interventions Objective Patient Orientation: Person, Place, Time and Situation Current Interventions: IV's and Telemetry Observation: Pt Min A to stand from EOB. Pt Mod A for sit to stand from recliner. Pt is Setup for using a urinal in standing. Pt has slight limitation of BUE shoulder AROM. Interventions ROM Right Upper Extremity AROM: Slight limitation Left Upper Extremity AROM: Slight limitation Comments: 3-/5 in BUE. Mass playback operator is 4-/5 R, and 4/5 L. Strength Right Upper Extremity: Mild Weakness Left Upper Extremity: Mild Weakness Sensation Right Upper Extremity: Intact/Normal Left Upper Extremity: Intact/Normal Balance Sitting Balance Static Sitting Balance: Fair Dynamic Sitting Balance: Fair Standing Balance Static Standing Balance: Poor Dynamic Standing Balance: Poor ADL Skills Self Feeding Self Feeding: Independent Grooming Grooming: Min Assist Grooming Set-up: Sitting Bathing Bathing UE: Min Assist Bathing LE: Min Assist Bathing Set-up: Shower Dressing Dressing UE: Min Assist Dressing LE: Min Assist Toilet Management Toilet Hygiene: CGA Toilet Clothing Management: CGA Functional Mobility Bed Mobility Rolling R/L: Min Assist Supine to Sit: Min Assist Transfers Sit to Stand: Mod Assist and 2 person assist Stand to Sit: Min Assist and 2 person assist Stand Pivot Transfers: Min Assist and 1 person assist Ambulation Weight Bearing Status: FWB Assistive Device Used: Rolling Walker Assistance needed with Ambulation: Min Assist and 2 person assist (Min A to CGA for ambulation.) Safety Awareness Safety Awareness: Good FRANDY INDEX SCORE: . Additional Treatment Performed Additional units charged ADL: 10 Time with patient Length of Evaluation: 16 Total treatment time: 26 Activities Patient Interests:: Watching Television, Visiting/Socializing and Computer/Internet Patient Education Patient Education: Body/Joint mechanics, Home Exercise Program, Home Safety and Education of Plan of Care Teaching Recipient: Patient Teaching Methods: Teach Back Method Used, Discussion, Demonstration and Handout Assessment Problem List:: Decreased level of function, Requires training/education, Decreased safety/Risk of falls and Weakness Rehab Potential: Good Further Therapy Indicated?: Yes Evaluation Complexity: HISTORY: Medium, EXAM OF BODY SYSTEMS: Medium and CLINICAL DECISION MAKING: Medium Patient's Goal(s): To be able to get stronger and return to home. Short Term Goals Goals GOAL 1: To increase toilet transfers to CGA. Goal to be met by: 10/07/24 GOAL 2: To increase BUE strength to 4/5. Goal to be met by: 10/07/24 GOAL 3: Pt to be CGA for personal hygiene. Goal to be met by: 10/27/24 GOAL 4: Pt to be CGA for UB dressing. Goal to be met by: 10/07/24 GOAL 5: Pt to be CGA for brushing his teeth at the sink. Goal to be met by: 10/07/24 Parachute Taper Goals GOAL 1: Pt to increase [place] of ADLS to CGA. Goal to be met by: 10/11/24 GOAL 2: Pt to increase BUE strength to 4+/5. Goal to be met by: 10/11/24 GOAL 3: Pt to increase dyn. std. bal. to Fair+. Goal to be met by: 10/11/24 Plan Plan of Care: Therapeutic EX, Therapeutic Activity and Self-Care/Home Management Frequency of Treatment: 1-2 X day, as tolerated Duration of Treatment: 1 Week Anticipated Discharge Destination: Home Treatment Diagnosis (ICD 10 Codes): Z74.1 Need assistance with personal care, R53.1 Weakness, R26.81 Impaired balance. Has the Physician been added for Co-signature?: Yes
--- NOTE | 2024-10-04 13:03 | PCM.PROG ---
Date/Time Seen Date Seen by Provider: 10/04/24 Time Seen by Provider: 09:40 Provider Provider: [facility] BR[facility]ES [facility]-C[facility] Chief Complaint Chief Complaint: WEAKNESS Subjective Subjective: The patient is examined at bedside earlier this morning. He reports that he has not had a bowel movement but wanted to wait on an enema until he worked with therapy to see if it would elicit response. Patient has not worked with therapy as of yet but otherwise states that he is feeling okay. Objective Appearance: Positive Well-appearing Chest/Lungs: Positive Symmetrical With Equal Breath Sounds Heart: Positive RRR GI/: Positive Soft and Nontender Neurological: Positive Sensation Intact and Motor intact Vital Signs Vital Signs: Vital Signs: Last 24 Hours 10/03/24 14:00 10/03/24 19:00 10/03/24 21:15 Temperature 97.9 F 98.4 F Temperature Source Temporal Artery Scan Temporal Artery Scan Pulse Rate 72 62 Respiratory Rate 14 17 Blood Pressure 145/83 H 163/89 H Blood Pressure Mean 103 113 Blood Pressure Location Left Arm Right Arm Blood Pressure Position Supine O2 Sat by Pulse Oximetry 95 96 Oxygen Delivery Method Room Air Room Air Height Weight Telemetry Type Remote Telemetry Telemetry Monitoring Continues Telemetry Heart Rate 66 EKG IN Interval EKG QRS Interval 0.08 Telemetry Strip Reading ATRIAL FIB 10/04/24 01:00 10/04/24 05:13 10/04/24 07:00 Temperature 98.3 F Temperature Source Temporal Artery Scan Pulse Rate 61 Respiratory Rate 16 Blood Pressure 157/85 H Blood Pressure Mean 109 Blood Pressure Location Left Arm Blood Pressure Position Supine O2 Sat by Pulse Oximetry 97 Oxygen Delivery Method Room Air Height Weight Telemetry Type Remote Telemetry Remote Telemetry Telemetry Monitoring Continues Continues Telemetry Heart Rate 57 L 60 EKG IN Interval 0.20 EKG QRS Interval 0.06 0.10 Telemetry Strip Reading AFIB Sinus rhythm with PAC 10/04/24 09:27 Temperature Temperature Source Pulse Rate Respiratory Rate Blood Pressure Blood Pressure Mean Blood Pressure Location Blood Pressure Position O2 Sat by Pulse Oximetry Oxygen Delivery Method Height 6 ft 4 in Weight 86 kg Telemetry Type Telemetry Monitoring Telemetry Heart Rate EKG IN Interval EKG QRS Interval Telemetry Strip Reading Lab Results Lab Results: Lab Results: Last 24 Hours 10/04/24 05:08 WBC 6.77 RBC 3.29 L Hgb 10.6 L Hct 33.7 L MCV 102.4 H MCH 32.2 H MCHC 31.5 L RDW Coeff of Jl 12.9 Plt Count 99 L Immature Gran % (Auto) 0.3 Neut % (Auto) 65.2 Lymph % (Auto) 14.8 [place] % (Auto) 8.6 Eos % (Auto) 10.8 H Baso % (Auto) 0.3 Neut # (Auto) 4.4 Lymph # (Auto) 1.0 [place] # (Auto) 0.6 Eos # (Auto) 0.7 Baso # (Auto) 0.0 Immature Gran # (Auto) 0.0 Sodium 136.7 Potassium 3.48 L Chloride 104.2 Carbon Dioxide 27.6 Anion Gap 8.38 BUN 18.1 Creatinine 1.50 H Estimated GFR (MDRD) 44.00 BUN/Creatinine Ratio 12.06 Glucose 90.1 Calcium 8.62 Magnesium 1.64 Total Bilirubin 0.54 AST 23.2 ALT 12.3 Alkaline Phosphatase 66.6 Total Protein 5.34 L Albumin 2.59 L Globulin 2.75 Albumin/Globulin Ratio 0.94 Additional Comments Additional Comments: I have independently reviewed and interpreted the labs/EKGs/imaging ordered during this hospital stay. I have reviewed outside records that are available in our EMR that pertain to medical stay including imaging/notes/labs from previous visits. Active Medications Active Medications: Medications Generic Name Dose Route Start Last Admin Trade Name Freq PRN Reason Stop Dose Admin Acetaminophen 650 mg 10/01/24 14:25 Acetaminophen 325 Mg Tablet PO Q4H PRN Mild Pain Apixaban 2.5 mg 10/01/24 21:00 10/04/24 08:08 Apixaban 5 Mg Tab PO 2.5 mg BID GUERRERO Administration Atorvastatin Calcium 10 mg 10/01/24 21:00 10/03/24 20:34 Atorvastatin Calcium 10 Mg Tablet PO 10 mg BEDTIME GUERRERO Administration Bimatoprost 1 drop 10/01/24 21:00 10/03/24 20:35 Bimatoprost 0.03% 2.5 Ml Opth Steff EACHEYE 1 drop BEDTIME GUERRERO Administration Brimonidine Tartrate 1 drop 10/03/24 15:00 10/04/24 08:03 Brimonidine Tartrate 0.2% 5 Ml Btl RIGHTEYE 1 drop 0700,1500,2300 GUERRERO Administration Calamine/Phenol 1 applic 10/03/24 12:15 10/04/24 08:17 Menthol/Zinc Oxide 113 Gm Ointment TP 1 applic BID GUERRERO Administration Carvedilol 3.125 mg 10/01/24 17:00 10/04/24 08:07 Carvedilol 3.125 Mg Tablet PO 3.125 mg [id number] GUERRERO Administration Donepezil HCl 5 mg 10/04/24 21:00 Donepezil Hcl 10 Mg Tablet PO 2100 GUERRERO Dorzolamide/Timolol 1 drop 10/02/24 09:00 10/04/24 08:46 Dorzolamide Hcl/Timolol Maleat Opth 10 Ml Steff EACHEYE 1 drop BID GUERRERO Administration Ergocalciferol 50,000 unit 10/01/24 21:00 10/01/24 20:35 Ergocalciferol (Vitamin D2) 50,000 Unit Capsule PO 50,000 unit TuFr@0900 GUERRERO Administration Erythromycin 1 applic 10/01/24 21:00 10/03/24 20:34 Erythromycin 3.5 Gm Opth Oint EACHEYE 10/04/24 20:59 1 applic BEDTIME GUERRERO Administration Fluticasone Propionate 2 spray 10/02/24 09:00 10/04/24 08:10 Fluticasone Propionate 16 Gm Nasal [place] JUAN 2 spray DAILY GUERRERO Administration Folic Acid 1 mg 10/01/24 21:00 10/03/24 20:34 Folic Acid 1 Mg Tablet PO 1 mg BEDTIME GUERRERO Administration Melatonin 6 mg 10/02/24 10:23 10/03/24 23:29 Melatonin 3 Mg Tablet PO 6 mg BEDTIME PRN Administration Insomnia Non-Formulary Medication 180 mg 10/03/24 09:30 10/04/24 08:15 Fexofenadine [Kareen Allergy] PO 180 mg DAILY GUERRERO Administration Nystatin 1 applic 10/03/24 15:00 10/04/24 08:17 Nystatin 15 Gm Cream TP 1 applic TID GUERRERO Administration Pantoprazole Sodium 40 mg 10/01/24 17:00 10/03/24 17:08 Pantoprazole Sodium 40 Mg Tablet.Dr PO 40 mg QPM GUERRERO Administration Sodium Chloride 1 syr 10/02/24 13:00 10/04/24 05:06 0.9% Sodium Chloride 10 Ml Disp.Syrin IVF 1 syr Q8HR GUERRERO Administration Tamsulosin HCl 0.4 mg 10/04/24 09:00 10/04/24 08:07 Tamsulosin Hcl 0.4 Mg Cap.Er.24h PO 0.4 mg DAILY GUERRERO Administration Plan Plan: 1. Hypokalemia - Improving up to 3.4, replacement ordered, telemetry, repeat in am 2. Hypomagnesemia - increased up to 1.6, telemetry, continue to monitor daily 3. Weakness/Debility - PT/OT to eval and treat, unsafe to discharge home at this time 4. Diastolic dysfunction - chronic, no s/sx of overload, monitor 5. HTN - chronic, continue home medications 6. Paroxysmal Afib - continue home medications, monitor 7. CKD - improved, minimal urine output and no BM, Post void bladder scan noted with no residual. DVT Prophylaxis: Eliquis Dispo: Patient lives at home alone and was stuck in recliner x 2 weeks due to weakness. Unsafe to discharge home at this time. PT/OT to eval and determine d/c plans following. Review Statement Review Statement: I have personally discussed and reviewed the patient's visit/currently labs/imaging/decision making with Dr. Briseno, my supervising attending. Greater that 50 minutes spent with patient, 50% of the time spent with this patient was devoted to counseling and coordination of care.
[2024-10-04] MEDS: ARICEPT PO SCH (20:19)
[2024-10-05 05:42] LABS: BASOPHILS % (AUTO) 0.6 % (0.0-3.0); EOSINOPHILS # (AUTO) 0.7 K/ul (0.0-0.7); EOSINOPHILS % (AUTO) 10.6 % (0.0-7.0); HEMATOCRIT 33.2 % (42.0-52.0); HEMOGLOBIN 10.6 g/dl (14.0-18.0); IMMATURE GRANULOCYTE % (AUTO) 0.3 % (0.0-5.0); LYMPHOCYTES % (AUTO) 15.2 (10.0-50.0); MEAN CORPUSCULAR HEMOGLOBIN 32.8 pg (27.0-31.0); MEAN CORPUSCULAR HGB CONC 31.9 (31.8-35.4); MEAN CORPUSCULAR VOLUME 102.8 fl (80.0-94.0); MONOCYTES # (AUTO) 0.6 K/uL (0.4-2.0); MONOCYTES % (AUTO) 8.8 (0-10); NEUTROPHILS # (AUTO) 4.2 K/ul (2.0-6.9); NEUTROPHILS % (AUTO) 64.5 % (42.2-75.2); PLATELET COUNT 108 10^3/uL (140-440); RDW COEFFICIENT OF VARIATION 12.7 % (11.6-14.8); RED BLOOD COUNT 3.23 10^6/ul (4.70-6.10); WHITE BLOOD COUNT 6.51 K/ul (4.2-10.2)
[2024-10-05 06:04] LABS: ALANINE AMINOTRANSFERASE 13.4 U/L (0-50); ALBUMIN 2.54 g/dL (3.5-5.0); ALKALINE PHOSPHATASE 66.8 U/L (56-119); ASPARTATE AMINO TRANSFERASE 26.5 U/L (17-59); BILIRUBIN,TOTAL 0.21 mg/dL (0.2-1.3); CALCIUM 8.48 mg/dL (8.4-10.2); CARBON DIOXIDE 27.5 mmol/L (22-30.0); CHLORIDE 104.3 mmol/L (98-107); CREATININE 1.47 mg/dL (0.60-1.10); GLUCOSE 94.1 mg/dL (74-106); MAGNESIUM 1.44 mg/dL (1.6-2.3); POTASSIUM 3.55 mmol/L (3.5-5.1); TOTAL PROTEIN 5.18 g/dL (6.3-8.2)
[2024-10-05] MEDS: MAGNESIUM SULF 2 G/50 ML BAG 2 GM/50 ML PIGGYBACK IV ONE (09:57)
[2024-10-05 10:01] VITALS: TEMP 97.7
--- NOTE | 2024-10-05 13:09 | DCSUM ---
Admission Date Admission Date: 10/01/24 Discharge Date Discharge Date: 10/05/24 Admission Diagnosis Admission Diagnosis: 1. Hypokalemia 2. Hypomagnesemia 3. Weakness/Debility Discharge Diagnosis Discharge Diagnosis: 1. Hypokalemia - resolved 2. Hypomagnesemia - improved 3. Weakness/Debility 4. Diastolic dysfunction 5. HTN 6. Paroxysmal Afib 7. CKD Hospital Provider Hospital Provider: FILEMON CABELLO PA-C[facility] Primary Care Physician Primary Care Physician: MARGARITA ABAD Summary of History and Physical Summary of History and Physical: 84 yo male with pmh of HTN, HLD, Diastolic dysfunction, and Afib presented to the ER via ambulance from home for weakness. States that he has not been out of his recliner for 2 weeks due to weakness. Has been using a urinal to urinate and has foul smell due to inability to shower. Currently living at home by himself. No family that lives local. Does have a friend that looks out for him. Found to have potassium of 2.9 and Mag of 1.3. Admitted to med/surg observation. Requiring 3 person assist to transfer at this time. Hospital Course Subjective: Patient's electrolytes were replaced. He worked with therapy and wished to do the swingbed program. He is unsafe to return at home at this time due to his weakness. Patient has a medical condition which requires positioning of the body in ways no feasible with an ordinary bed. He frequires frequent changes in body position to alleviate pain/prevention of ulcers and due to diastolic heart failure/dysfunction. Appearance: Pleasant, No Apparent Distress and Alert HEENT: MMM Abdomen: Soft, Non-Tender and No Distention Respiratory: No Accessory Muscle Use Extremities: No Edema Vital Signs: Most Recent Vital Signs Temperature 97.7 F 10/05/24 09:59 Temperature Source Temporal Artery Scan 10/05/24 09:59 Temperature Source Temporal Artery Scan 10/01/24 10:38 Pulse Rate 70 10/05/24 09:59 Respiratory Rate 16 10/05/24 09:59 Blood Pressure 136/83 10/05/24 09:59 Blood Pressure Mean 100 10/05/24 09:59 Blood Pressure Left Arm 123/95 10/01/24 13:35 Blood Pressure Location Left Arm 10/05/24 09:59 Blood Pressure Position Sitting 10/05/24 09:59 O2 Sat by Pulse Oximetry 95 10/05/24 09:59 Oxygen Delivery Method Room Air 10/05/24 09:59 Height 6 ft 4 in 10/04/24 09:27 Weight 86 kg 10/04/24 09:27 Telemetry Type Remote Telemetry 10/05/24 07:00 Telemetry Monitoring Continues 10/05/24 07:00 Irregular Telemetry Rate (Approximate) 60-70 BPM 10/03/24 13:00 Telemetry Heart Rate 60 10/05/24 01:00 EKG [place] Interval 0.24 H 10/05/24 07:00 EKG QRS Interval 0.07 10/05/24 07:00 Telemetry Strip Reading SR w/ 1st degree AVB 10/05/24 07:00 Imaging: EXAM: AP VIEW OF ABDOMEN 10/01/2024 HISTORY: Constipation. COMPARISON: CT abdomen pelvis 07/27/2024 FINDINGS: Regional soft tissue and osseous structures are intact. Bowel gas pattern is non-obstructive. No free intraperitoneal air. Moderate fecal burden. Degenera tive changes. Scoliosis. Phleboliths in the pelvis. IMPRESSION: Nonobstructive bowel gas pattern. Moderate fecal burden. Lab Results Last 24 Hours: 10/05/24 05:24 WBC 6.51 RBC 3.23 L Hgb 10.6 L Hct 33.2 L MCV 102.8 H MCH 32.8 H MCHC 31.9 RDW Coeff of Jl 12.7 Plt Count 108 L Immature Gran % (Auto) 0.3 Neut % (Auto) 64.5 Lymph % (Auto) 15.2 [place] % (Auto) 8.8 Eos % (Auto) 10.6 H Baso % (Auto) 0.6 Neut # (Auto) 4.2 Lymph # (Auto) 1.0 [place] # (Auto) 0.6 Eos # (Auto) 0.7 Baso # (Auto) 0.0 Immature Gran # (Auto) 0.0 Sodium 137.0 Potassium 3.55 Chloride 104.3 Carbon Dioxide 27.5 Anion Gap 8.75 BUN 20.0 Creatinine 1.47 H Estimated GFR (MDRD) 46.00 BUN/Creatinine Ratio 13.60 Glucose 94.1 Calcium 8.48 Magnesium 1.44 L Total Bilirubin 0.21 AST 26.5 ALT 13.4 Alkaline Phosphatase 66.8 Total Protein 5.18 L Albumin 2.54 L Globulin 2.64 Albumin/Globulin Ratio 0.96 Discharge Instructions Discharge Planning: Discharge Planning > [address] Woodrow Briseno. Discharge Plan Discharge Discharge Orders: Discharge Patient (ONCE); Ordered 10/05/24 Ordered By: FILEMON CABELLO Activity Restrictions/Additional Instructions: DISCHARGE TO SWINGBED Patient Disposition: DISCH W/I HOSP TO SWING BD Prescriptions: No Action fluticasone propionate [Flonase Allergy Relief] 9.9 ML spray,suspension 9.9 ml NS DAILY Qty: 1 0RF atorvastatin 10 mg tablet 10 mg PO QPM Eliquis 2.5 mg tablet 2.5 mg PO BID carvedilol 3.125 mg tablet 3.125 mg PO BID terazosin 5 mg capsule 5 mg PO BEDTIME brimonidine 0.2 % drops 1 drp RIGHTEYE TID [place] 0.01 % drops 1 drp BOTHEYES BEDTIME fexofenadine [Kareen Allergy] 180 mg tablet 180 mg PO DAILY erythromycin 5 mg/gram (0.5 %) ointment 1 applic BOTHEYES BEDTIME donepezil 5 mg tablet 5 mg PO 2100 tamsulosin 0.4 mg capsule 0.4 mg PO DAILY pantoprazole 40 mg tablet,delayed release (DR/EC) 40 mg PO QPM folic acid 1 mg tablet 1 mg PO QPM dorzolamide-timolol 22.3-6.8 mg/mL drops 1 drp BOTHEYES BID ergocalciferol (vitamin D2) [Vitamin D2] 1,250 mcg (50,000 unit) capsule 1 unit PO DIRECTED Rx Instructions: TWO TIMES A WEEK Did you review [place] PET CARE TECHNICIAN for ALL controlled substances?: Not Applicable Discussed opioids are addictive and Narcan is available by prescription or from pharmacy.: No Condition: Good
[2024-10-05 14:02] VITALS: BP 136/89; PULSE 60
[2024-10-05] MEDS ORDERED: ERYTHROMYCIN EACHEYE SCH (21:00)
== END 2024-10-05 14:20 | disposition swing bed (61) | DRG 641 ==
LOC: ED 10:34 → MEDSURG B 10:34
PROVIDERS: ADMIT Hospitalist; ATTEND Physician Assistant